=== PATIENT | male | born 1970 ===

== ENCOUNTER 2020-02-25 08:19 | Day surgery (SDC) | payer BC ==
[~2020-02-25 08:19] MED LIST: Lactated Ringers 1,000 ML IV SCH
--- NOTE | 2020-02-25 08:51 | PCM.PREANE ---
Preanesthetic Assessment - Anesthesia/Transfusion/Family Hx Anesthesia History: No Prior Anesthesia Family History of Anesthesia Reaction: No Transfusion History: No Prior Transfusion(s) - Review of Systems General: No Symptoms Pulmonary: No Symptoms Cardiovascular: No Symptoms Gastrointestinal: No Symptoms Neurological: No Symptoms Other: Reports: None - Physical Assessment NPO Status Date: 02/24/20 Height: 6 ft Weight: 122.47 kg ASA Class: 3 Mental Status: Alert & Oriented x3 Airway Class: Mallampati = 2 Dentition: Reports: Normal Dentition ROM/Head Extension: Full Lungs: Clear to Auscultation, Normal Respiratory Effort Cardiovascular: Regular Rate, Regular Rhythm - Allergies Allergies/Adverse Reactions: Allergies Allergy/AdvReac Type Severity Reaction Status Date / Time No Known Allergies Allergy Verified 02/19/20 12:50 - Acknowledgements Pt an Appropriate Candidate for the Planned Anesthesia: Yes Alternatives and Risks of Anesthesia Discussed w Pt/Guardian: Yes Pt/Guardian Understands and Agrees with Anesthesia Plan: Yes Additional Comments: PMH: MO, dain on CPAP, gout/hyperuricemia, pre-dm plan: tiva PreAnesthesia Questionnaire HEENT History: Reports: None Cardiovascular History: Reports: None Respiratory History: Reports: Sleep Apnea Other Respiratory History: uses CPAP Gastrointestinal History: Other Gastrointestinal History: states has a fatty liver Genitourinary History: Reports: None Musculoskeletal History: Reports: Gout Neurological History: Reports: None Psychiatric History: Reports: None Endocrine/Metabolic History: Reports: Obesity/BMI 30+ Other Endocrine/Metabolic History: states is pre-diabetic Immunologic History: Reports: None Oncologic (Cancer) History: Reports: None Dermatologic History: Reports: None - Infectious Disease History Infectious Disease History: Reports: None - Past Surgical History Head Surgeries/Procedures: Reports: None - SUBSTANCE USE Smoking Status *Q: Never Smoker - HOME MEDS Home Medications: Home Meds Testosterone Cypionate 1 injection IM ASDIRECTED 02/19/20 [History] allopurinoL [Zyloprim] 300 mg PO DAILY 02/19/20 [History] metFORMIN HCl [Metformin HCl ER] 1,000 mg PO BID 02/19/20 [History] tadalafiL [Tadalafil] 5 mg PO DAILY 02/19/20 [History] - CURRENT (IN HOUSE) MEDS Current Meds: Current Medications Lactated Ringer's (Ringers, Lactated) 1,000 mls @ 125 mls/hr IV ASDIRECTED BABATUNDE
--- NOTE | 2020-02-25 11:18 | PCM.OPNOTE ---
- General Post-Op/Procedure Note Date of Surgery/Procedure: 02/25/20 Operative Procedure(s): colonoscopy with polypectomy Findings: colon polyp in splenic flexure. Dictation number [id number] Pre Op Diagnosis: screening Post-Op Diagnosis: colon polyp Anesthesia Technique: [facility] [place] Primary Surgeon: Robin Maxwell Pathology: colon polyp Complications: None Condition: Good
--- NOTE | 2020-02-25 12:35 | OR ---
SURGEON: CATHLEEN GUTIERREZ MD DATE OF PROCEDURE: 02/25/2020 PREOPERATIVE DIAGNOSES: 1. Screening colonoscopy. 2. Family history of colon cancer. POSTOPERATIVE DIAGNOSIS: Small polyp, removed, about splenic flexure. PRIMARY SURGEON: Cathleen Gutierrez MD ANESTHESIA: General. EXTENT OF COLONOSCOPY: To the cecum. WITHDRAWAL TIME: 12 minutes. LIMITATIONS: None. BOWEL PREP: Very good. REASON FOR PROCEDURE: The patient is a pleasant 49-year-old gentleman. He has never had a colonoscopy before. He denies any blood in the stool. He says he does have a paternal grandfather with colon cancer. PROCEDURE IN DETAIL: Physical examination was performed. The major risks and benefits associated with the procedure were explained to the patient in detail. The patient verbalized understanding of the same. The patient was then connected to appropriate monitoring devices and IV started. EKG, pulse, pulse oximetry, blood pressure, capnography, and monitoring throughout the procedure. Continuous oxygen and sedation were provided by the anesthesiologist. The patient was placed in left lateral decubitus position. Sedation was began. After adequate sedation was achieved, digital rectal exam was performed. No rectal masses or polyps were felt. Now, a well-lubricated Olympus colonoscope was entered in the rectum and advanced under direct visualization to the level of the cecum. Cecum was identified by both visual and anatomic landmarks. Photograph was taken of the cecal cap and the terminal ileum was also intubated. Scope was then slowly withdrawn in somewhat circular fashion looking at the color, texture, anatomy, and integrity of the mucosa from the cecum to the anal canal. The patient had a good bowel prep with some minimal liquid stool, which was suctioned and irrigated out for a clear look at the mucosa. Right around the splenic flexure, the patient had a small polyp, which was removed with a hot snare polypectomy. There was good hemostasis. Scope was continued to be withdrawn. Scope was retroflexed in the rectum. Scope was then completely removed, and the procedure was terminated. ENDOSCOPIC DIAGNOSIS: Small polyp around the splenic flexure. RECOMMENDATIONS: Followup colonoscopy will depend on pathology, but most likely another one in 5 years, sooner if he develops signs or symptoms such as change in bowel habits or blood in the stool. BRANDON / SHANTE /[id number]
--- NOTE | 2020-02-25 12:40 | PCM.POSTAN ---
POST ANESTHESIA ASSESSMENT - MENTAL STATUS Mental Status: Alert, Oriented - VITAL SIGNS Vital Signs: Last Vital Signs Temp 97.7 F 02/25/20 11:20 Pulse 68 02/25/20 11:20 Resp 15 02/25/20 11:20 BP 120/69 02/25/20 11:20 Pulse Ox 96 02/25/20 11:20 - RESPIRATORY Respiratory Status: Respiratory Rate WNL, Airway Patent, O2 Saturation Stable - CARDIOVASCULAR CV Status: Pulse Rate WNL, Blood Pressure Stable - GASTROINTESTINAL GI Status: No Symptoms - POST OP HYDRATION Hydration Status: Adequate & Stable
--- NOTE | 2020-02-25 12:41 | PCM48HPAN ---
Post Anesthesia Note - EVALUATION WITHIN 48HRS OF ANESTHETIC Vital Signs in Normal Range: Yes Patient Participated in Evaluation: Yes Respiratory Function Stable: Yes Airway Patent: Yes Cardiovascular Function Stable: Yes Hydration Status Stable: Yes Pain Control Satisfactory: Yes Nausea and Vomiting Control Satisfactory: Yes Mental Status Recovered: Yes Vital Signs: Last Vital Signs Temp 97.7 F 02/25/20 11:20 Pulse 68 02/25/20 11:20 Resp 15 02/25/20 11:20 BP 120/69 02/25/20 11:20 Pulse Ox 96 02/25/20 11:20
== END 2020-02-25 11:44 | disposition home or self-care (01) ==
LOC: MW.SDS 08:19
PROVIDERS: ATTEND Surgery
DX: Z12.11 Encounter for screening for malignant neoplasm of colon (principal); D12.3 Benign neoplasm of transverse colon; E66.9 Obesity, unspecified; E78.5 Hyperlipidemia, unspecified; G47.33 Obstructive sleep apnea (adult) (pediatric); Z80.0 Family history of malignant neoplasm of digestive organs; Z68.38 Body mass index [BMI] 38.0-38.9, adult
CPT/HCPCS: 45385; J7120; 00812